=== PATIENT | female | born 1985 | race Caucasian/White ===

== ENCOUNTER 2016-11-29 11:59 | Emergency (ER) | payer BC ==
[~2016-11-29] VITALS: Ht 154.9 cm; Wt 79.4 kg
[2016-11-29] MEDS ORDERED: KETOROLAC TROMETH 60MG/2ML VIAL IM ONE (14:30)
[2016-11-29 14:45] VITALS: BP 105/81
== END 2016-11-29 15:22 | disposition home or self-care (01) ==
LOC: ER 12:00
DX: M50.323 Other cervical disc degeneration at C6-C7 level (principal); M54.12 Radiculopathy, cervical region; G89.29 Other chronic pain
CPT/HCPCS: 72040; 96372; 99284; J1885

== ENCOUNTER 2017-07-23 15:22 | Observation (INO) | payer BC ==
[~2017-07-23] VITALS: Ht 157.5 cm; Wt 73.0 kg
[2017-07-23 16:20] LABS: Basophils # (auto) 0 uL; Basophils % (auto) 0.4 % (0.0-2.0); CONDITION Y; Eosinophils # (auto) 0.2 uL; Eosinophils % (auto) 1.9 % (0.0-7.0); Hematocrit 42.8 % (36.0-46.0); Hemoglobin 14.5 g/dL (12.2-16.2); Lymphocytes # (auto) 2.3 uL; Lymphocytes % (auto) 23.1 % (10.0-50.0); Mean Corpuscular Hemoglobin 31.4 pg (28.0-32.0); Mean Corpuscular Hgb Conc. 33.8 g/dL (32.0-36.0); Mean Corpuscular Volume 92.8 fL (80.0-100.0); Mean Platelet Volume 9.5 fL (7.4-10.4); Monocytes # (auto) 0.7 uL; Monocytes % (auto) 6.7 % (0.0-12.0); Neutrophils # (auto) 6.8 uL; Neutrophils % (auto) 67.9 % (37.0-80.0); Platelet Count (auto) 284 10^3/uL (140-450); Red Cell Distribution Width 13.6 % (11.6-16.0)
[2017-07-23 16:22] LABS: Albumin 4.1 g/dL (3.4-5.0); BUN/Creatinine Ratio 18.1; Calcium 8.9 mg/dL (8.5-10.1)
[2017-07-23 16:25] LABS: Bilirubin, Total 0.4 mg/dL (0.2-1.0); Total Protein 7.3 g/dL (6.4-8.2)
[2017-07-23 16:44] LABS: Urine Bilirubin Negative (Negative); Urine Blood Negative /uL (Negative); Urine Color Yellow (Yellow); Urine Glucose Normal (Normal); Urine Ketone Negative (Negative); Urine Mucus FEW (None Seen); Urine Nitrite Negative (Negative); Urine RBC 1 /hpf (0 - 4); Urine Squamous Epithelial Cell FEW /hpf (<5); Urine Urobilinogen Normal (Negative); Urine pH 5.5 (5.0-8.0)
[2017-07-23] MEDS ORDERED: SODIUM CHLORIDE 0.9% 1,000 ML IVB ONE (19:45)
[2017-07-23 20:19] LABS: Magnesium 2.6 mg/dL (1.6-2.6)
[2017-07-23 21:19] VITALS: BP 118/84
[2017-07-23] MEDS ORDERED: KETOROLAC TROMETH 30 MG/ML 1ML VIAL IV ONE (22:30)
[2017-07-23] MEDS ORDERED: cefTRIAXone 1GM/50ML D5W 50 ML IV ONE (22:30)
[2017-07-23 22:45] LABS: INR 0.98 (0.9-1.15); Partial Thromboplastin Time 28.3 sec (22.64-33.71); Prothrombin Time 10.7 sec (9.37-12.3)
[2017-07-24] MEDS ORDERED: IBUPROFEN 800 MG TAB PO ONE (00:30)
== END 2017-07-24 01:20 | disposition home or self-care (01) | DRG 694 ==
LOC: ER 15:24 → OVERFLOW 19:47 → ER 07-24 01:20
PROVIDERS: ADMIT Family Medicine; ATTEND Family Medicine
DX: N20.0 Calculus of kidney (principal); N30.00 Acute cystitis without hematuria; N70.11 Chronic salpingitis; Z82.49 Family history of ischemic heart disease and other diseases of the circulatory system; Z87.891 Personal history of nicotine dependence
CPT/HCPCS: 36415; 71010; 74176; 76830; 76856; 80053; 81001; 82150; 83690; 83735; 84702; 85025; 85610; 85730; 96361; 96365; 99285; G0378; J0696; J7030

== ENCOUNTER 2018-05-14 15:24 | Emergency (ER) | payer BC, MEDICAID ==
[~2018-05-14] VITALS: Ht 157.5 cm; Wt 65.3 kg
[2018-05-14 15:57] VITALS: BP 118/85
[2018-05-14] MEDS ORDERED: KETOROLAC TROMETH 60MG/2ML VIAL IM ONE (16:15)
== END 2018-05-14 16:50 | disposition home or self-care (01) ==
LOC: ER 15:28
DX: S92.351A Displaced fracture of fifth metatarsal bone, right foot, initial encounter for closed fracture (principal); S00.83XA Contusion of other part of head, initial encounter; F17.210 Nicotine dependence, cigarettes, uncomplicated; W01.0XXA Fall on same level from slipping, tripping and stumbling without subsequent striking against object, initial encounter; Y93.89 Activity, other specified; Y92.89 Other specified places as the place of occurrence of the external cause; Y99.8 Other external cause status
CPT/HCPCS: 73630; 96372; 99284; J1885

== ENCOUNTER 2018-07-01 23:34 | Emergency (ER) | payer BC, MEDICAID ==
[~2018-07-01] VITALS: Ht 160 cm; Wt 67.1 kg
[2018-07-02] MEDS ORDERED: fentaNYL CITRATE 100 MCG/2 ML VL IV ONE
[2018-07-02] MEDS ORDERED: ONDANSETRON HCL 4 MG/2 ML VIAL IV ONE (00:15)
[2018-07-02] MEDS ORDERED: ETOMIDATE (2MG/ML) 20ML VIAL IV ONE (00:15)
[2018-07-02] MEDS: ETOMIDATE (2MG/ML) 20ML VIAL IV ONE ×2 (01:07→01:08)
[2018-07-02 01:16] VITALS: BP 151/96
[2018-07-02] MEDS ORDERED: HYDROcodone-ACET 10/325MG TAB PO ONE (02:00)
== END 2018-07-02 02:55 | disposition home or self-care (01) ==
LOC: ER 23:49
DX: S62.511A Displaced fracture of proximal phalanx of right thumb, initial encounter for closed fracture (principal); F17.210 Nicotine dependence, cigarettes, uncomplicated; Z90.710 Acquired absence of both cervix and uterus; W18.39XA Other fall on same level, initial encounter; Y93.89 Activity, other specified; Y99.8 Other external cause status; Y92.89 Other specified places as the place of occurrence of the external cause
CPT/HCPCS: 26725; 73120; 73130; 96374; 96375; 99152; 99153; 99285; J2405; J3010; J7030